=== PATIENT | male | born 1960 | race Caucasian/White ===

== ENCOUNTER 2018-01-27 01:47 | Emergency (ER) | payer MEDICAID ==
[~2018-01-27] VITALS: Ht 182.9 cm; Wt 80.0 kg
[2018-01-27] MEDS ORDERED: LIDOcaine Viscous 15ml cup PO ONE (02:25)
[2018-01-27] MEDS ORDERED: proCHLORperazine 10 MG/2 ml inj IV ONE (02:25)
[2018-01-27] MEDS ORDERED: mag hydrox/Alum hydrox/simeth 30ml oral suspension PO ONE (02:25)
[2018-01-27] MEDS ORDERED: morphine 4 MG/ML inj SYRINge IV ONE (02:25)
[2018-01-27] MEDS ORDERED: pantoprazole 40 MG vial IV ONE (02:25)
[2018-01-27] MEDS ORDERED: sucralfate 1gm/10ml UD suspension PO ONE (02:25)
[2018-01-27] MEDS ORDERED: LORazepam 2 mg/ml vial IV ONE (02:25)
[2018-01-27] MEDS ORDERED: normal saline 1000ml 1,000 ML IV ONE (02:25)
[2018-01-27] MEDS ORDERED: normal saline 1000ML IV soln IVB ONE ×2 (02:25→04:20)
[2018-01-27 03:42] LABS: ALANINE AMINOTRANSFERASE 17 U/L (12-78); ALBUMIN/GLOBULIN RATIO 1.4 (1.1-1.5); ALKALINE PHOSPHATASE 110 IU/L (46-116); ANION GAP 14 (8-16); ASPARTATE AMINO TRANSFERASE 16 U/L (10-37); BILIRUBIN,TOTAL 0.8 MG/DL (0.1-1.0); BLOOD UREA NITROGEN 29 MG/DL (7-18); BUN/CREATININE RATIO 18.1 (5.4-32.0); CALCIUM 11.7 MG/DL (8.5-10.1); CHLORIDE 101 MMOL/L (99-107); GLUCOSE 170 MG/DL (70-104); LIPASE 120 U/L (73-393); POTASSIUM 3.5 MMOL/L (3.5-5.1); SODIUM 145 MMOL/L (135-145); TOTAL CARBON DIOXIDE 30.4 MMOL/L (24-32); TOTAL PROTEIN 8.6 G/DL (6.4-8.2); eGFR 45 ML/MIN
[2018-01-27 03:44] LABS: BASOPHILS % (AUTO) 0 % (0-1); EOSINOPHILS # (AUTO) 0.2 X10'3 (0-0.9); EOSINOPHILS % (AUTO) 1.4 % (0-6); HEMATOCRIT 50.4 % (42.0-52.0); HEMOGLOBIN 16.8 g/dl (14.0-17.9); LYMPHOCYTES # (AUTO) 1.2 X10'3 (1.1-4.8); LYMPHOCYTES % (AUTO) 6.8 % (21-51); MEAN CORPUSCULAR HGB CONC 33.4 % (33.0-36.5); MEAN CORPUSCULAR VOLUME 92.7 FL (78-98); MEAN PLATELET VOLUME 10.3 FL (7.4-10.4); MONOCYTES # (AUTO) 0.7 X10'3 (0-0.9); MONOCYTES % (AUTO) 3.9 % (2-12); NEUTROPHILS # (AUTO) 15.3 X10'3 (1.8-7.7); NEUTROPHILS % (AUTO) 87.9 % (42-75); PLATELET COUNT 352 X10'3 (140-440); RED BLOOD COUNT 5.43 X10'6 (4.70-6.10); RED CELL DISTRIBUTION WIDTH 13.9 % (11.5-14.5); WHITE BLOOD COUNT 17.4 X10'3 (4.5-11.0)
[2018-01-27 03:48] LABS: ETHANOL < 0.010 GM/DL (0.0-0.010)
[2018-01-27 03:53] LABS: PARTIAL THROMBOPLASTIN TIME 25 SECONDS (22-32); PROTHROMBIN TIME 10.6 SECONDS (9.0-12.0)
[2018-01-27] MEDS ORDERED: PROC-8 PO (04:17)
[2018-01-27] MEDS ORDERED: PANT-47 PO (04:17)
[2018-01-27 05:32] VITALS: BP 133/70
== END 2018-01-27 05:34 | disposition home or self-care (01) ==
LOC: ER 01:48
DX: G43.A0 Cyclical vomiting, in migraine, not intractable (principal); N28.9 Disorder of kidney and ureter, unspecified; E86.0 Dehydration; M19.90 Unspecified osteoarthritis, unspecified site; Z91.040 Latex allergy status; Z79.899 Other long term (current) drug therapy
CPT/HCPCS: 36415; 80053; 80320; 83690; 83735; 85025; 85610; 85730; 93005; 96361; 96374; 96375; 99284; C9113; J0780; J2060; J2270; J7030